=== PATIENT | male | born 1970 | race Hispanic/Latino ===

== ENCOUNTER 2017-08-22 15:14 | Inpatient (IN) | payer MEDICARE ==
[~2017-08-22] VITALS: Ht 157.5 cm; Wt 69.9 kg
[2017-08-22] MEDS ORDERED: SODIUM CHLORIDE 0.9% 1000ML 2,000 ML IV ONE (15:45)
[2017-08-22] MEDS ORDERED: ONDANSETRON HCL 4 MG/2 ML VIAL ONE ×3 (15:45→21:54)
[2017-08-22 15:56] LABS: BASOPHILS % (AUTO) 0.3 % (0.0-5.0); EOSINOPHILS % (AUTO) 0.3 % (0.0-8.0); HEMATOCRIT 40.8 % (42-54); LYMPHOCYTES % (AUTO) 13.3 % (21.0-51.0); MEAN CORPUSCULAR HEMOGLOBIN 30.8 pg (27.0-33.0); MEAN CORPUSCULAR VOLUME 90.5 fL (79-99); MONOCYTES % (AUTO) 15.9 % (3.0-13.0); NEUTROPHILS % (AUTO) 70.2 % (40.0-77.0); PLATELET COUNT (AUTO) 250 K/uL (130-400); RED CELL DISTRIBUTION WIDTH 14.3 % (11.0-15.5); WHITE BLOOD COUNT (AUTO) 6.7 K/uL (4.8-10.8)
[2017-08-22 16:08] LABS: CREATININE 1.4 mg/dL (0.5-1.5); POTASSIUM 3.5 mmol/L (3.5-5.1)
[2017-08-22 16:31] LABS: APPEARANCE,URINE CLOUDY (CLEAR); BILIRUBIN,URINE NEGATIVE (NEGATIVE); COLOR,URINE YELLOW (YELLOW); GLUCOSE, URINE (UA) NEGATIVE (NEGATIVE); KETONES,URINE 15 mg/dL (NEGATIVE); LEUKOCYTE ESTERASE ,URINE LARGE (NEGATIVE); NITRATE,URINE POSITIVE (NEGATIVE); OCCULT BLOOD,URINE LARGE (NEGATIVE); PROTEIN,URINE 100 (NEGATIVE); UROBILINOGEN,URINE 0.2 mg/dL (0.2-1.0)
[2017-08-22] MEDS ORDERED: SODIUM CHLORIDE 0.9% 50 ML IV ONE (16:41)
[2017-08-22] MEDS ORDERED: CEFTRIAXONE SODIUM 1 GM ONE (16:41)
[2017-08-22 16:42] LABS: BACTERIA,URINE Many /HPF (None Seen); WBC,URINE Full Field /HPF (0-1)
[2017-08-22 16:43] LABS: SQUAMOUS EPITHELIAL CELL,UR 0-2 /LPF (0-2)
[2017-08-22] MEDS ORDERED: MORPHINE SULFATE 5 MG/ML VIAL ONE ×2 (16:50→21:55)
[2017-08-22] MEDS ORDERED: IOPAMIDOL-370 75 ML VIAL IV ONE (17:33)
[2017-08-22] MEDS ORDERED: MORPHINE SULFATE 2 MG/ML 1ML SYG IV PRN (22:00)
[2017-08-22] MEDS ORDERED: ONDANSETRON HCL 4 MG/2 ML VIAL IV PRN (22:00)
[2017-08-22] MEDS ORDERED: LIDOCAINE HCL-MPF 1% 2ML VIAL IVP PRN (22:00)
[2017-08-22] MEDS ORDERED: POTASSIUM CHLORIDE 10% ELIXIR 20 MEQ/15 ML UDCUP PO PRN (22:00)
[2017-08-22] MEDS ORDERED: ACETAMINOPHEN 325 MG TAB PO PRN ×2 (22:00)
[2017-08-22] MEDS ORDERED: POTASSIUM CHLORIDE 20MEQ/100ML 100 ML IV PRN (22:00)
[2017-08-22] MEDS ORDERED: KETOROLAC TROMETHAMINE 30MG/ML IV PRN (22:00)
[2017-08-22] MEDS ORDERED: POTASSIUM CHLORIDE 20 MEQ ERTAB PO PRN (22:00)
[2017-08-22] MEDS ORDERED: CEFTRIAXONE 1GM/D5W 50ML 50 ML IV SCH (22:00)
[2017-08-22 22:25] VITALS: BP 180/99
[2017-08-22] MEDS: SODIUM CHLORIDE 0.9% 1000ML 1,000 ML IV SCH (23:41)
[2017-08-22 23:54] VITALS: BP 185/101
[2017-08-23 04:00] VITALS: BP 167/94
[2017-08-23 05:49] LABS: HEMATOCRIT 35.1 % (42-54); MEAN CORPUSCULAR HEMOGLOBIN 31.9 pg (27.0-33.0); MEAN CORPUSCULAR HGB CONC 34.8 g/dL (32.0-36.0); MEAN CORPUSCULAR VOLUME 91.6 fL (79-99); PLATELET COUNT (AUTO) 218 K/uL (130-400); RED BLOOD CELL COUNT(AUTO) 3.84 MIL/uL (4.50-6.20); RED CELL DISTRIBUTION WIDTH 14.5 % (11.0-15.5); WHITE BLOOD COUNT (AUTO) 7.1 K/uL (4.8-10.8)
[2017-08-23 06:03] LABS: CREATININE 1.2 mg/dL (0.5-1.5); POTASSIUM 3.8 mmol/L (3.5-5.1)
[2017-08-23 07:55] VITALS: BP 180/105
[2017-08-23] MEDS: FAMOTIDINE 20MG TAB 20 MG TAB PO SCH ×2 (08:26→20:56)
[2017-08-23 11:29] VITALS: BP 160/97
[2017-08-23] MEDS: LISINOPRIL 20 MG TABLET PO SCH (11:52)
[2017-08-23] MEDS: SODIUM CHLORIDE 0.9% 1000ML 1,000 ML IV SCH ×2 (11:53→20:56)
[2017-08-23 16:37] VITALS: BP 146/89
[2017-08-23] MEDS: CEFTRIAXONE 1GM/D5W 50ML 50 ML IV SCH (16:47)
[2017-08-23 20:40] VITALS: BP 129/79
[2017-08-23 23:34] VITALS: BP 145/84
[2017-08-24] VITALS (7 sets, daily range): BP systolic 133–190; BP diastolic 68–100
[2017-08-24] MEDS: SODIUM CHLORIDE 0.9% 1000ML 1,000 ML IV SCH (03:49)
[2017-08-24] MEDS ORDERED: MORPHINE SULFATE 5 MG/ML VIAL ONE (04:26)
[2017-08-24] MEDS: HYDRALAZINE HCL 20 MG/ML VIAL IV PRN ×2 (04:36→18:08)
[2017-08-24] MEDS: LISINOPRIL 20 MG TABLET PO SCH (08:44)
[2017-08-24] MEDS: FAMOTIDINE 20MG TAB 20 MG TAB PO SCH ×2 (08:44→20:11)
[2017-08-24] MEDS ORDERED: CLONIDINE HCL 0.1 MG TABLET PO PRN (11:30)
[2017-08-24] MEDS ORDERED: LACTULOSE 20 GM/30 ML UDCUP PO PRN (11:30)
[2017-08-24] MEDS: POLYETHYLENE GLYCOL 3350 17 GM POWD.PACK PO SCH (12:23)
[2017-08-24] MEDS: METOCLOPRAMIDE 10 MG/2 ML VIAL IVP SCH ×2 (12:23→18:02)
[2017-08-24] MEDS: SIMETHICONE 80 MG TAB.CHEW PO SCH ×2 (14:12→20:11)
[2017-08-24] MEDS: CEFTRIAXONE 1GM/D5W 50ML 50 ML IV SCH (18:01)
[2017-08-25 04:17] VITALS: BP 159/86
[2017-08-25 06:14] LABS: HEMATOCRIT 34.2 % (42-54); MEAN CORPUSCULAR HEMOGLOBIN 31.2 pg (27.0-33.0); MEAN CORPUSCULAR HGB CONC 34.2 g/dL (32.0-36.0); PLATELET COUNT (AUTO) 262 K/uL (130-400); RED BLOOD CELL COUNT(AUTO) 3.75 MIL/uL (4.50-6.20); RED CELL DISTRIBUTION WIDTH 14.5 % (11.0-15.5); WHITE BLOOD COUNT (AUTO) 5.5 K/uL (4.8-10.8)
[2017-08-25 06:33] LABS: CREATININE 1.2 mg/dL (0.5-1.5); POTASSIUM 3.4 mmol/L (3.5-5.1)
[2017-08-25] MEDS: METOCLOPRAMIDE 10 MG/2 ML VIAL IVP SCH ×2 (06:59→12:42)
[2017-08-25 08:43] VITALS: BP 140/88
[2017-08-25] MEDS: POLYETHYLENE GLYCOL 3350 17 GM POWD.PACK PO SCH (10:13)
[2017-08-25] MEDS: SIMETHICONE 80 MG TAB.CHEW PO SCH ×2 (10:13→12:49)
[2017-08-25] MEDS: FAMOTIDINE 20MG TAB 20 MG TAB PO SCH (10:13)
[2017-08-25] MEDS: LISINOPRIL 20 MG TABLET PO SCH (10:14)
[2017-08-25] MEDS ORDERED: LISI-613 PO (12:45)
[2017-08-25] MEDS ORDERED: CIPR-278 PO (12:45)
== END 2017-08-25 13:40 | disposition home or self-care (01) | DRG 690 ==
LOC: EDH 15:14 → OBSVTOIN 19:37 → EDHIP 19:37 → 4CH 21:18 → 4AH 08-24 01:34
PROVIDERS: ADMIT Family Medicine; ATTEND Family Medicine
DX: N12 Tubulo-interstitial nephritis, not specified as acute or chronic (principal); N13.30 Unspecified hydronephrosis; I10 Essential (primary) hypertension; Q05.9 Spina bifida, unspecified; Z79.899 Other long term (current) drug therapy
CPT/HCPCS: 36415; 74177; 80048; 81001; 85025; 85027; 87088; 87186; J0360; J0696; J1885; J2270; J2405; J2765; J7030; Q9967

== ENCOUNTER 2021-10-11 10:44 | Emergency (ER) | payer MEDICARE ==
[~2021-10-11] VITALS: Ht 157.5 cm; Wt 72.6 kg
[~2021-10-11 10:44] MED LIST: CIPR-278 PO; LISI20TA24 PO
[2021-10-11 10:51] VITALS: BP 117/80
[2021-10-11 11:09] LABS: BASOPHILS % (AUTO) 0.3 % (0.0-5.0); EOSINOPHILS % (AUTO) 0.1 % (0.0-8.0); HEMATOCRIT 45.7 % (42-54); LYMPHOCYTES % (AUTO) 4.8 % (21.0-51.0); MEAN CORPUSCULAR HEMOGLOBIN 29.7 pg (27.0-33.0); MEAN CORPUSCULAR HGB CONC 32.6 g/dL (32.0-36.0); MEAN CORPUSCULAR VOLUME 91.2 fL (79-99); MONOCYTES % (AUTO) 2.8 % (3.0-13.0); NEUTROPHILS % (AUTO) 91.1 % (40.0-77.0); PLATELET COUNT (AUTO) 356 K/uL (130-400); RED BLOOD CELL COUNT(AUTO) 5.01 MIL/uL (4.50-6.20); RED CELL DISTRIBUTION WIDTH 14.9 % (11.0-15.5); WHITE BLOOD COUNT (AUTO) 14.9 K/uL (4.8-10.8)
[2021-10-11 11:15] LABS: CREATININE 1.6 mg/dL (0.5-1.5); POTASSIUM 4.5 mmol/L (3.5-5.1)
[2021-10-11 11:20] LABS: ALBUMIN 4.4 g/dL (3.5-5.0); BILIRUBIN,TOTAL 0.3 mg/dL (0.2-1.0); TOTAL PROTEIN, SERUM 9.3 g/dL (6.0-8.3)
[2021-10-11 11:57] LABS: APPEARANCE,URINE Cloudy (CLEAR); BILIRUBIN,URINE Negative (NEGATIVE); COLOR,URINE Yellow (YELLOW); GLUCOSE, URINE (UA) Negative (NEGATIVE); KETONES,URINE Negative (NEGATIVE); LEUKOCYTE ESTERASE ,URINE Large (NEGATIVE); NITRATE,URINE Positive (NEGATIVE); OCCULT BLOOD,URINE Negative (NEGATIVE); PH,URINE 8.5 (5.0-8.0); PROTEIN,URINE POS 2+ mg/dL (NEGATIVE)
[2021-10-11] MEDS ORDERED: CEFTRIAXONE 1G VIAL 1 GM in 0.9%NACL 50ML 50 ML IV ONE (12:30)
[2021-10-11] MEDS ORDERED: 0.9%NACL 1000ML 1,000 ML IV ONE ×2 (12:30→12:44)
[2021-10-11] MEDS ORDERED: ONDANSETRON 4MG INJ ONE (12:46)
[2021-10-11] MEDS ORDERED: CEFTRIAXONE 1G VIAL ONE (12:46)
[2021-10-11 13:12] LABS: BACTERIA,URINE Moderate /HPF (None Seen); RBC,URINE 0-1 /HPF (0-1); SQUAMOUS EPITHELIAL CELL,UR Rare /HPF (0-2)
[2021-10-11] MEDS ORDERED: CEFTRIAXONE 1G VIAL IVP ONE (13:30)
[2021-10-11] MEDS ORDERED: ONDANSETRON 4MG INJ IVP ONE (13:30)
[2021-10-11] MEDS ORDERED: ONDA-104 PO (13:50)
[2021-10-11] MEDS ORDERED: CEPH500B PO (13:50)
== END 2021-10-11 13:59 | disposition home or self-care (01) ==
LOC: EDH 10:44
DX: N39.0 Urinary tract infection, site not specified (principal); R11.2 Nausea with vomiting, unspecified; Z20.822 Contact with and (suspected) exposure to COVID-19; I10 Essential (primary) hypertension; Z79.899 Other long term (current) drug therapy
CPT/HCPCS: 36415; 80053; 81001; 85025; 87077 ×2; 87088; 87186 ×2; 87426; 96361; 96374; 96375; 99284; J0696; J2405; J7030

== ENCOUNTER 2022-03-28 10:01 | Emergency (ER) | payer MEDICARE ==
[~2022-03-28] VITALS: Ht 154.9 cm; Wt 72.6 kg
[~2022-03-28 10:01] MED LIST changes: +CEPH500B PO; +ONDA-104 PO
[2022-03-28 10:53] LABS: APPEARANCE,URINE CLOUDY (CLEAR); BILIRUBIN,URINE NEGATIVE (NEGATIVE); COLOR,URINE YELLOW (YELLOW); GLUCOSE, URINE (UA) NEGATIVE (NEGATIVE); KETONES,URINE NEGATIVE (NEGATIVE); LEUKOCYTE ESTERASE ,URINE LARGE (NEGATIVE); NITRATE,URINE POSITIVE (NEGATIVE); OCCULT BLOOD,URINE MODERATE (NEGATIVE); PROTEIN,URINE 30 mg/dL (NEGATIVE); UROBILINOGEN,URINE 0.2 mg/dL (0.2-1.0)
[2022-03-28 11:25] LABS: BACTERIA,URINE Many /HPF (None Seen); RBC,URINE 0-1 /HPF (0-1); SQUAMOUS EPITHELIAL CELL,UR Rare /HPF (0-2); WBC,URINE TNTC /HPF (0-1)
[2022-03-28 12:05] LABS: BASOPHILS % (AUTO) 0.3 % (0.0-5.0); EOSINOPHILS % (AUTO) 0.1 % (0.0-8.0); HEMATOCRIT 35.7 % (42-54); LYMPHOCYTES % (AUTO) 10.4 % (21.0-51.0); MEAN CORPUSCULAR HEMOGLOBIN 29.8 pg (27.0-33.0); MEAN CORPUSCULAR HGB CONC 32.8 g/dL (32.0-36.0); MEAN CORPUSCULAR VOLUME 90.8 fL (79-99); MONOCYTES % (AUTO) 8.7 % (3.0-13.0); NEUTROPHILS % (AUTO) 80.1 % (40.0-77.0); PLATELET COUNT (AUTO) 218 K/uL (130-400); RED BLOOD CELL COUNT(AUTO) 3.93 MIL/uL (4.50-6.20); RED CELL DISTRIBUTION WIDTH 15.6 % (11.0-15.5); WHITE BLOOD COUNT (AUTO) 7.1 K/uL (4.8-10.8)
[2022-03-28 12:23] LABS: ALBUMIN 3.4 g/dL (3.5-5.0); BILIRUBIN,TOTAL 0.4 mg/dL (0.2-1.0); CREATININE 1.5 mg/dL (0.5-1.5); TOTAL PROTEIN, SERUM 7.8 g/dL (6.0-8.3)
[2022-03-28] MEDS ORDERED: KETOROLAC 15MG/ML VIAL (15MG/ML) IV ONE (12:30)
[2022-03-28] MEDS ORDERED: CEFTRIAXONE 1G VIAL IVP ONE (12:30)
[2022-03-28] MEDS ORDERED: SULFAMETHOX-TMP DS 800/160 TAB PO SCH (12:30)
[2022-03-28] MEDS ORDERED: SULF1TAB42 PO (14:22)
[2022-03-28] MEDS ORDERED: ACET-2079 PO (14:26)
[2022-03-28 14:52] VITALS: BP 132/79
== END 2022-03-28 14:53 | disposition home or self-care (01) ==
LOC: EDH 10:01
DX: N39.0 Urinary tract infection, site not specified (principal)
CPT/HCPCS: 36415; 80053; 81001; 85025; 87077; 87088; 87186; 96374; 96375; J0696; J1885

== ENCOUNTER 2022-12-14 19:20 | Emergency (ER) | payer MEDICARE ==
[~2022-12-14] VITALS: Ht 154.9 cm; Wt 68.0 kg
[~2022-12-14 19:20] MED LIST changes: +ACET-2079 PO; +SULF1TAB42 PO
[2022-12-14] MEDS ORDERED: IBUPROFEN 600 MG TABLET PO SCH (20:00)
[2022-12-14] MEDS ORDERED: SULFAMETHOX-TMP DS 800/160 TAB PO SCH (20:30)
[2022-12-14 20:58] LABS: BASOPHILS % (AUTO) 0.2 % (0.0-5.0); HEMATOCRIT 37.2 % (42-54); LYMPHOCYTES % (AUTO) 8.6 % (21.0-51.0); MEAN CORPUSCULAR HEMOGLOBIN 29.8 pg (27.0-33.0); MEAN CORPUSCULAR HGB CONC 32.3 g/dL (32.0-36.0); MEAN CORPUSCULAR VOLUME 92.3 fL (79-99); MONOCYTES % (AUTO) 9.6 % (3.0-13.0); NEUTROPHILS % (AUTO) 80.9 % (40.0-77.0); PLATELET COUNT (AUTO) 173 K/uL (130-400); RED BLOOD CELL COUNT(AUTO) 4.03 MIL/uL (4.50-6.20); RED CELL DISTRIBUTION WIDTH 15.7 % (11.0-15.5); WHITE BLOOD COUNT (AUTO) 8.1 K/uL (4.8-10.8)
[2022-12-14 20:59] LABS: APPEARANCE,URINE TURBID (CLEAR); BACTERIA,URINE MOD /HPF (None Seen); BILIRUBIN,URINE NEGATIVE (NEGATIVE); COLOR,URINE LIGHT-ORANGE (YELLOW); GLUCOSE, URINE (UA) NEGATIVE (NEGATIVE); KETONES,URINE NEGATIVE (NEGATIVE); LEUKOCYTE ESTERASE ,URINE 500 Leu/uL (NEGATIVE); MUCUS,URINE FEW LPF (None Seen); NITRATE,URINE 2+ (NEGATIVE); OCCULT BLOOD,URINE NEGATIVE (NEGATIVE); OTHER CASTS, URINE 5 /LPF (None Seen); PH,URINE 8.5 (5.0-8.0); PROTEIN,URINE 600 mg/dL (NEGATIVE); TRIPLE PHOSPHATE CRYSTAL,UR FEW /LPF (None Seen); UROBILINOGEN,URINE 0.2 mg/dL (0.2-1.0); WBC,URINE 26-50 /HPF (0-1); YEAST,URINE BUDDING MOD /HPF (None Seen)
[2022-12-14 21:06] LABS: CREATININE 1.9 mg/dL (0.5-1.5); POTASSIUM 4.1 mmol/L (3.5-5.1)
[2022-12-14 21:11] LABS: ALBUMIN 3.7 g/dL (3.5-5.0); TOTAL PROTEIN, SERUM 7.8 g/dL (6.0-8.3)
[2022-12-14 22:16] VITALS: BP 120/76
[2022-12-14] MEDS ORDERED: NIRM1TAB PO (22:24)
[2022-12-14] MEDS ORDERED: SULF1TAB42 PO (22:24)
== END 2022-12-14 22:30 | disposition home or self-care (01) ==
LOC: EDH 19:20
DX: U07.1 COVID-19 (principal); N39.0 Urinary tract infection, site not specified; I10 Essential (primary) hypertension; Z79.1 Long term (current) use of non-steroidal anti-inflammatories (NSAID); Z79.899 Other long term (current) drug therapy; Z79.2 Long term (current) use of antibiotics
CPT/HCPCS: 99283; 87635; 80053; 85025; 87077; 87088; 87186; 87420; 87804 ×2; 81001; 36415; C9803

== ENCOUNTER 2023-03-02 23:21 | Emergency (ER) | payer MEDICARE ==
[~2023-03-02] VITALS: Ht 152.4 cm; Wt 68.0 kg
[~2023-03-02 23:21] MED LIST changes: +NIRM1TAB PO
[2023-03-02 23:52] LABS: BASOPHILS % (AUTO) 0.4 % (0.0-5.0); EOSINOPHILS % (AUTO) 0.2 % (0.0-8.0); HEMATOCRIT 41.9 % (42-54); LYMPHOCYTES % (AUTO) 9.6 % (21.0-51.0); MEAN CORPUSCULAR HEMOGLOBIN 30.6 pg (27.0-33.0); MEAN CORPUSCULAR HGB CONC 32.7 g/dL (32.0-36.0); MEAN CORPUSCULAR VOLUME 93.5 fL (79-99); MONOCYTES % (AUTO) 4.4 % (3.0-13.0); NEUTROPHILS % (AUTO) 84.6 % (40.0-77.0); PLATELET COUNT (AUTO) 294 K/uL (130-400); RED BLOOD CELL COUNT(AUTO) 4.48 MIL/uL (4.50-6.20); WHITE BLOOD COUNT (AUTO) 10.5 K/uL (4.8-10.8)
[2023-03-03] MEDS ORDERED: 0.9%NACL 1000ML 1,000 ML IV ONE
[2023-03-03] MEDS ORDERED: ONDANSETRON 4MG INJ IVP ONE
[2023-03-03] MEDS ORDERED: CEFTRIAXONE 2GM VIAL IVPB ONE
[2023-03-03 00:07] LABS: CREATININE 1.5 mg/dL (0.5-1.5); POTASSIUM 4.8 mmol/L (3.5-5.1)
[2023-03-03 00:11] LABS: APPEARANCE,URINE TURBID (CLEAR); BILIRUBIN,URINE NEGATIVE (NEGATIVE); COLOR,URINE LIGHT-ORANGE (YELLOW); GLUCOSE, URINE (UA) NEGATIVE (NEGATIVE); KETONES,URINE NEGATIVE (NEGATIVE); LEUKOCYTE ESTERASE ,URINE 500 Leu/uL (NEGATIVE); NITRATE,URINE NEGATIVE (NEGATIVE); PH,URINE 8.5 (5.0-8.0); PROTEIN,URINE 70 mg/dL (NEGATIVE); UROBILINOGEN,URINE 0.2 mg/dL (0.2-1.0)
[2023-03-03 00:11] LABS: ALBUMIN 4.6 g/dL (3.5-5.0); TOTAL PROTEIN, SERUM 8.3 g/dL (6.0-8.3)
[2023-03-03 00:19] LABS: MUCUS,URINE RARE LPF (None Seen); WBC,URINE TNTC /HPF (0-1)
[2023-03-03] MEDS ORDERED: CEPH500B PO (02:35)
[2023-03-03 03:25] VITALS: BP 123/67
== END 2023-03-03 03:26 | disposition home or self-care (01) ==
LOC: EDH 23:21
DX: N39.0 Urinary tract infection, site not specified (principal); E86.0 Dehydration; I10 Essential (primary) hypertension; Z79.899 Other long term (current) drug therapy
CPT/HCPCS: 99284; 96365; 96375; 84484; 80053; 83690; 85025; 87088; 81001; 36415; 93005; J2405; J0696